=== PATIENT | male | born 1960 | race Caucasian/White ===

== ENCOUNTER 2018-10-27 06:15 | Day surgery (SDC) | payer OTHER ==
[~2018-10-27] VITALS: Ht 167.6 cm; Wt 77.1 kg
[~2018-10-27 06:15] MED LIST: Cialis5 MG PO; IBUP400 PO; LEVO750 PO; Omeprazole20 M1 PO
--- NOTE | 2018-10-27 07:04 | NUR ---
Ambulatory in Day Surgery Surgical site prepped with 2% Chlorhexidine cloth wipe. History, Chart, Medications and Allergies reviewed before start of procedure.Lungs clear T/O to Auscultation. Patient confirms NPO status and agrees with scheduled surgery. Pt gave wedding ring to . All other belonings placed under bed.
--- NOTE | 2018-10-27 09:55 | NUR ---
PT WITH DRESSING TO LEFT INGUINAL HERNIA D&I, PT DENIES PAIN AT THIS TIME. PT GIVEN WATER, CRACKERS AND APPLE SAUCE. AT BEDSIDE.
--- NOTE | 2018-10-27 10:19 | NUR ---
PT HAS TOLERATED FLUIDS AND APPLE SAUCE. PO PAIN MEDICATIONS PROVIDED.
--- NOTE | 2018-10-27 10:32 | NUR ---
PT REQUESTS ADDITIONAL PAIN MEDICATION PRIOR TO DISCHARGE. 1 ADDITIONAL NORCO PROVIDED.
--- NOTE | 2018-10-27 10:43 | NUR ---
Discharge instructions reviewed with patient. Patient verbalizes understanding. Copy given to patient to take home. Patient States Post-Procedure ride home has been arranged. PT ATE A FULL PUDDING PRIOR TO DISCHARGE. Discharged via wheelchair to private car for ride home.
== END 2018-10-27 10:45 | disposition home or self-care (01) ==
LOC: ORSCMMR 06:15 → ORD 07:30 → ORSCMMR 10:45
PROVIDERS: Surgery
PROC: 0YU60JZ Supplement Left Inguinal Region with Synthetic Substitute, Open Approach (ICD-10-PCS; principal; 2018-10-27 07:30)
DX: K40.91 Unilateral inguinal hernia, without obstruction or gangrene, recurrent (principal); K21.9 Gastro-esophageal reflux disease without esophagitis; Z79.899 Other long term (current) drug therapy
CPT/HCPCS: C1781; J0690; J1100; J1885; J2405; J3010; J7120

== ENCOUNTER → 2024-03-30 | Outpatient (CLI) | payer OTHER ==
[2024-03-30 12:19] LABS: Free Thyroxine 0.89 ng/dL (0.70-1.60); Thyroid Stimulating Hormone 1.83 uIU/mL (0.360-4.800)
== END | disposition home or self-care (01) ==
LOC: LAB SHORT 10:27
PROVIDERS: Family Medicine
DX: R53.83 Other fatigue (principal)
CPT/HCPCS: 84439; 84443